=== PATIENT | male | born 1970 | race Caucasian/White ===

== ENCOUNTER 2020-04-17 08:03 | Emergency (ER) | payer OTHER, SELFPAY ==
--- NOTE | ~2020-04-17 | XR_ITS ---
EXAMINATION: XR_[id number]_CR DATE: 04/17/2020 09:13 INDICATION: Neck pain radiating to the right shoulder. TECHNIQUE: 3 views of cervical spine were obtained. COMPARISON: None. FINDINGS: Bone alignment is normal. Vertebral body heights are normal. There is mildly decreased disc height at C5-C6. The facet joints are unremarkable. No central canal stenosis or prevertebral soft t issue swelling. IMPRESSION: 1. Mild cervical spondylosis. Reviewed, dictated and finalized at location A. IN ARCHITECT
--- NOTE | ~2020-04-17 | XR_ITS ---
EXAMINATION: XR shoulder RT min 2V DATE: 04/17/2020 09:14 INDICATION: Right shoulder pain. TECHNIQUE: 4 views of right shoulder were obtained. COMPARISON: None. FINDINGS: Bone alignment is normal. No fracture. Joint spaces are well maintained. IMPRESSION: 1. Normal right shoulder. Reviewed, dictated and finalized at location A. PLOYMENT INSURANCE DIRECTOR IMPRESSION: 1. Normal right shoulder.
[2020-04-17 08:10] VITALS: BP 129/71; PULSE 81; RESP 20; TEMP 36.6; O2SAT 97
--- NOTE | 2020-04-17 09:24 | ED.UPPEXIN ---
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 There is no recent injury, no falls and no traumatic event to neck or shoulder. Has reduced range of motion secondary to pain. Patient has no fever chills no nausea vomiting no headache no blurry vision no neurological deficits. Patient has been taking [id number] ibuprofen with mild relief. MD complaint: injury to: right Onset (ago): day(s) Other injuries: none Handedness: right Place: work Severity: moderate Severity scale (1-10): 8 Context: other ( No recent injury) Related Data Allergies Allergy/AdvReac Type Severity Reaction Status Date / Time No Known Allergies Allergy Verified 04/17/20 08:45 Review of Systems Review of Systems: All systems reviewed & are unremarkable except as noted in HPI and below [facility] Past Medical History Medical History Chronic shoulder pain Exam Const: General: cooperative, healthy appearing, comfortable, no acute distress and well developed HENMT: Head: normal to inspection General nose exam: Normal external nose present Eyes: General: appearance normal, both eyes and all related structures Chest: Chest palpation & inspection: normal inspection of the chest and normal palpation of entire chest wall Resp: Effort & Inspection: normal respiratory effort and able to speak in complete sentences GI: Inspection: normal to inspection Percussion: Yes normal to percussion Skin: General skin exam: normal color and no rashes or lesions noted Neuro: General: oriented to person, oriented to place, oriented to time, patient oriented x3 and gait normal Sensory Exam: Upper extremity sensory exam abnormal ( decreased range of motion right shoulder with active and passive ROM) Psych: Appearance: grossly normal Course Course Emergency Course: reassessment patient after receiving IM Toradol pain has improved and x-rays performed reviewed with patient. Advised patient to follow-up with his primary care physician for further evaluation. Critical Care Time Critical Care Time Critical Care Time: No Discharge Plan Discharge Clinical Impression: Chronic shoulder pain Qualifiers: Laterality: right Qualified Code(s): M25.511 - Pain in right shoulder Patient Disposition: Home, Self-Care Condition: Stable Instructions: Antibiotic Form Additional Instructions: Follow-up with primary care physician as soon as possible for further evaluation and treatment. Take medicine as prescribed. Prescriptions: New tramadol [Ultram] 50 mg tablet 50 mg PO Q6H PRN (Reason: pain) Qty: 30 RF: 0 Follow-up/Referrals: UNKNOWN,DOCTOR [Primary Care Provider] - Time of Disposition: 09:50
[2020-04-17] MEDS: KETOROLAC (*BKC) 60 MG/2 ML VIAL IM (09:40)
[2020-04-17 10:02] VITALS: BP 128/71; PULSE 80; RESP 20; TEMP 36.9; O2SAT 98
== END 2020-04-17 10:10 | disposition home or self-care (01) ==
PROVIDERS: Emergency Provider Emergency Medicine
DX: M25.511 Pain in right shoulder (principal)
CPT/HCPCS: 72040; 73030; 96372; 99283; J1885

== ENCOUNTER 2020-04-21 08:15 | Outpatient (CLI) | payer OTHER, SELFPAY ==
[2020-04-21 08:32] LABS: Hematocrit 41.4 % (40.0-54.0); Hemoglobin 13.8 g/dL (14.0-18.0); Mean Corpuscular HGB Conc 33.3 g/dL (32.0-36.0); Mean Corpuscular Hemoglobin 31.5 pg (27.0-31.0); Mean Corpuscular Volume 94.5 fL (78.0-102.0); Platelet Count Result 228 K/mm3 (150-420); Red Blood Count 4.38 M/mm3 (4.70-6.10); Red Cell Distribution Width 12.1 % (11.6-14.4); White Blood Count 5.1 K/mm3 (4.8-10.8)
[2020-04-21 09:16] LABS: Alanine Aminotransferase 114 U/L (16-63); Albumin Level 3.9 g/dL (3.4-5.0); Alkaline Phosphatase 77 U/L (46-116); Anion Gap 8 mmol/L (8-16); Aspartate Amino Transferase 89 U/L (15-37); Bilirubin,Total 0.4 mg/dL (0.00-1.00); Blood Urea Nitrogen 13 mg/dL (7-18); Calcium 8.7 mg/dL (8.5-10.1); Carbon Dioxide 27 mmol/L (21-32); Chloride 106 mmol/L (98-108); Cholesterol 179 mg/dL (0-200); Estimated Glomerular Filt Rate > 60; Glucose 83 mg/dL (70-99); HDL Direct 52 mg/dL (40-60); LDL Cholesterol Calculated 112 mg/dL (<130); Osmolality Calculated 291 mOsm/kg (285-295); Potassium 4.9 mmol/L (3.5-5.1); Sodium 141 mmol/L (136-145); Total Protein 6.5 g/dL (6.4-8.2); Triglycerides 76 mg/dL (0-150)
[2020-04-25 03:10] LABS: Hepatitis C Additional Testing Has been added; Hepatitis C Virus Antibody Reactive (Nonreactive)
== END 2020-04-21 08:16 | disposition home or self-care (01) ==
LOC: CHSLAB 08:18
PROVIDERS: PCP Family Medicine; Visit Provider Family Medicine
DX: B19.20 Unspecified viral hepatitis C without hepatic coma (principal)
CPT/HCPCS: 36415; 80053; 80061; 85027

== ENCOUNTER 2020-04-30 08:42 | Outpatient (RCR) | payer OTHER, SELFPAY ==
--- NOTE | 2020-04-30 10:02 | PTOPEVAL ---
Thank you for referring Lavon Kuhn to [facility].? The patient is scheduled to be seen for therapy? __3__x/week for __12 visits. Please review, sign, date and return this plan of care HIEN. I agree with and certify that the following plan of care is medically necessary. Referring Physician Date Admitting Provider: Attending Provider: Joao Boggs DO Referring Provider: *PT Outpatient Evaluation Start: 04/30/20 09:12 Freq: Status: Active Protocol: Document 04/30/20 09:12 MANDIE (Rec: 04/30/20 10:02 MANDIE [id number]) Therapy Assessment Status Assessment Status Assessment Status Evaluation Outpatient Past Medical History Respiratory History Hx Chronic Obstructive Pulmonary Disease Yes (COPD) Gastrointestinal History Hx Appendectomy Yes Evaluation Information Problem Diagnosis right shoulder pain Onset 04/21/20 Subjective Information Pt. reports year of on/off Query Text:As Reported By Patient/ right shoulder pain. He Family states that it has recently increased in pain. He states that he has had past MRI which revealed some tears. He describes pain in the right shoulder and can radiate down into the elbow and hand. 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 He states that he does wake about every hour due to pain. He states that he cannot lay on his right side. He states that his goal is to reduce his shoulder pain. 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
--- NOTE | 2020-06-05 09:14 | PTOPEVAL ---
Thank you for referring Lavon Kuhn to [facility].? The patient is scheduled to be seen for therapy? __2__x/week for 4 visits. Please review, sign, date and return this plan of care HIEN. I agree with and certify that the following plan of care is medically necessary. Referring Physician Date Admitting Provider: Attending Provider: Joao Boggs DO Referring Provider: *PT Outpatient Evaluation Start: 04/30/20 09:12 Freq: Status: Active Protocol: Document 06/05/20 08:40 MANDIE (Rec: 06/05/20 09:13 MANDIE [email or web address]) Therapy Assessment Status Assessment Status Assessment Status Progress Outpatient Past Medical History Respiratory History Hx Chronic Obstructive Pulmonary Disease Yes (COPD) Gastrointestinal History Hx Appendectomy Yes Evaluation Information Problem Diagnosis right shoulder pain Onset 04/21/20 Subjective Information Pt. reports that he is better Query Text:As Reported By Patient/ overall. He states that the Family pain in his neck is gone. He reports most pain in the right shoulder and into the right brachial and forearm region. He states that pain is less intense than initially. 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 He states that he would like to continue with treatment based upon his progress thus far. Pain Assessment Pain Scale Pain Scale Used Numeric (1 - 10) Self Report Pain Assessment Right Shoulder(s) Reported Pain Level 3 Lowest Pain Intensity 1 Greatest Pain Intensity 5 Pain Score Pain Score 3: Self Report Interventions Used Interventions Used By Clinicians Electrical Stimulation, Exercise,Heat Upper Extremity Range of Motion General Upper Extremity Range of Motion Gross Upper Extremity Range of Motion -right shoulder flexion AROM Comments 149 degrees -left shoulder flexion 166 degrees Pt. demonstrates ability to reach the mid thoracic region with the right and left u.e. with combined IR and extension of the shoulder joint. Upper Extremity Muscle Strength Testing General Upper Extremity Strength Gross Upper Extremity Strength Comments right shoulder flexion 4/5
== END 2020-06-12 17:33 | disposition home or self-care (01) ==
LOC: CHSPT 08:42
PROVIDERS: PCP Family Medicine; Visit Provider Family Medicine
DX: M25.511 Pain in right shoulder (principal)
CPT/HCPCS: 97014; 97110; 97140; 97161; G0283

== ENCOUNTER 2020-10-15 12:35 | Outpatient (CLI) | payer OTHER, SELFPAY ==
--- NOTE | 2020-10-15 14:00 | NEURO_ITS ---
Impression: # Complains of right upper extremity pain. # No Carpal Tunnel Syndrome or ulnar neuropathy. # Normal needle/EMG exam with no neurogenic changes noted. # Clinical correlation recommended; right median f-wave latency prolonged. Nerve Conduction Studies Anti Sensory Summary Table Stim Site NR Peak (ms) P-T Amp (?V) Site1 Site2 Delta-P (ms) Dist (cm) Arcadio (m/s) Right Median Anti Sensory (2-3nd Digit) Wrist 2.7 48.1 Wrist 2-3nd Digit 2.7 14.0 52 Wrist 2.8 27.0 Wrist 2-3nd Digit 2.7 14.0 52 Right Radial Anti Sensory (Base 1st Digit) Wrist 2.6 15.1 Wrist Base 1st Digit 2.6 0.0 Right Ulnar Anti Sensory (5th Digit) Wrist 2.6 51.2 Wrist 5th Digit 2.6 14.0 54 Motor Summary Table Stim Site NR Onset (ms) O-P Amp (mV) Site1 Site2 Delta-0 (ms) Dist (cm) Arcadio (m/s) Right Median Motor (Abd Poll Brev) Wrist 2.7 5.1 Elbow Wrist 5.1 30.0 59 Elbow 7.8 3.0 Right Ulnar Motor (Abd Dig Minimi) Wrist 2.8 5.0 A Elbow Wrist 4.8 29.0 60 A Elbow 7.6 4.4 F Wave Studies NR F-Lat (ms) L-R F-Lat (ms) Right Median (Mrkrs) (Abd Poll Brev) 35.18 Right Ulnar (Mrkrs) (Abd Dig Min) 30.41 EMG Side Muscle Nerve Root Ins Act Fibs Amp Dur Recrt Comment Right 1stDorInt Ulnar C8-T1 Nml Nml Nml Nml Nml Right Ext Indicis Radial (Post Int) C7-8 Nml Nml Nml Nml Nml Right Ext Digitorum Radial (Post Int) C7-8 Nml Nml Nml Nml Nml Right BrachioRad Radial C5-6 Nml Nml Nml Nml Nml Right PronatorTeres Median C6-7 Nml Nml Nml Nml Nml Right Abd Poll Brev Median C8-T1 Nml Nml Nml Nml Nml Right ABD Dig Min Ulnar C8-T1 Nml Nml Nml Nml Nml Right Biceps Musculocut C5-6 Nml Nml Nml Nml Nml Right Brachialis Musculocut C5-6 Nml Nml Nml Nml Nml Right Triceps Radial C6-7-8 Nml Nml Nml Nml Nml Right Deltoid Axillary C5-6 Nml Nml Nml Nml Nml MTDD
== END 2020-10-15 12:36 | disposition home or self-care (01) ==
PROVIDERS: PCP Family Medicine; Visit Provider Orthopaedic Surgery
DX: G56.01 Carpal tunnel syndrome, right upper limb (principal)
CPT/HCPCS: 95886; 95909

== ENCOUNTER 2021-03-31 07:54 | Outpatient (RCR) | payer OTHER, SELFPAY ==
--- NOTE | 2021-03-31 09:09 | PTOPEVAL ---
Thank you for referring Lavon Kuhn to [facility].? The patient is scheduled to be seen for therapy? ____x/week for ___ weeks. Please review, sign, date and return this plan of care HIEN. I agree with and certify that the following plan of care is medically necessary. Referring Physician Date Admitting Provider: Attending Provider: Joao Boggs DO Referring Provider: *PT Outpatient Evaluation Start: 03/31/21 08:00 Freq: Status: Active Protocol: Document 03/31/21 08:02 [facility] (Rec: 03/31/21 09:08 [facility] [id number]) Therapy Assessment Status Assessment Status Assessment Status Evaluation Outpatient Past Medical History Respiratory History Hx Chronic Obstructive Pulmonary Disease Yes (COPD) Gastrointestinal History Hx Appendectomy Yes Evaluation Information Problem Diagnosis lumbar radiculopathy, cervical radiculopathy Onset 03/17/21 Additional Evaluation Detail oswestry = 74% functionally declined ndi = 68% functionally declined Subjective Information patient reports he has been Query Text:As Reported By Patient/ having more frequent and Family increased pain in the R side ( neck, shoulder, elbow, wrist, back, R leg, and into the R foot). he reports he has had an xray in the past. he reports he is having and MRI of the neck/shoulder this coming tuesday. he reports he has pain all the time now, but reports his pain is increased with sitting (more than 15 minutes). he reports he has pain in the R buttock with sitting. 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 he reports he has increased pain in the posterior shoulder/arm with lifting. he reports he has swelling in the upper posterior shoulder that will increase pain. he reports barely touching his elbow with feel like someone hit it with a hammer. Pain Assessment Timing of Pain Assessment Timing of Pain Assessment Assessment Pain Scale Pain S
--- NOTE | 2021-07-09 08:48 | PCPTNOTE ---
mr. stern has not been to skilled PT in over 3 months. as of this date, he will be dc'd from skilled PT services and all progress towards goals will be taken from his most recent evaluation/note.
== END 2021-04-06 23:59 | disposition home or self-care (01) ==
LOC: CHSPT 07:54
PROVIDERS: PCP Family Medicine; Visit Provider Family Medicine
DX: M54.16 Radiculopathy, lumbar region (principal); G95.9 Disease of spinal cord, unspecified; M54.12 Radiculopathy, cervical region
CPT/HCPCS: 97014; 97110; 97140; 97162; G0283

== ENCOUNTER 2021-04-04 09:25 | Outpatient (CLI) | payer OTHER, SELFPAY ==
--- NOTE | ~2021-04-04 | MR_ITS ---
EXAMINATION: MR cervical spine wo con DATE: 04/04/2021 11:16 INDICATION: Disease of spinal cord, unspecified. TECHNIQUE: Magnetic resonance imaging (MRI) of the cervical spine was performed without intravenous c ontrast. Sequences included sagittal T2-weighted FSE, sagittal T2-weighted FS FSE, sagittal T1-weight ed FSE, axial MERGE, and axial T2-weighted FSE. COMPARISON: Cervical spine radiographs 04/17/2020 FINDINGS: There is 2 mm anterolisthesis of C5 on C6. Vertebral body heights are normal. There is mode rately decreased disc height at C5-C6. The spinal cord signal intensity is normal. The following disc levels are specifically discussed: C2-C3: The disc does not extend beyond the endplate margin. There is severe left uncovertebral joint osteoarthritis. There is mild right and moderate left facet joint osteoarthritis. There is mild left neural foraminal stenosis. There is no central canal stenosis. C3-C4: The disc does not extend beyond the endplate margin. There is mild bilateral uncovertebral kirill nt osteoarthritis. There is severe right and moderate left facet joint osteoarthritis. There is mild bilateral neural foraminal stenosis. There is no central canal stenosis. C4-C5: The disc does not extend beyond the endplate margin. There is moderate right and mild left unc overtebral joint osteoarthritis. There is severe right and moderate left facet joint osteoarthritis. There is moderate right and mild left neural foraminal stenosis. There is no central canal stenosis. C5-C6: There is a central protrusion. There is severe bilateral uncovertebral joint osteoarthritis. T here is severe bilateral facet joint osteoarthritis. There is moderate bilateral neural foraminal leonardo nosis. There is mild central canal stenosis. C6-C7: The disc does not extend beyond the endplate margin. There is mild right and moderate left unc overtebral joint osteoarthritis. There is moderate bilateral facet joint osteoarthritis. There is mil d bilateral neural foraminal stenosis. There is no central canal stenosis. C7-T1: The disc does not extend beyond the endplate margin. There is no uncovertebral joint osteoarth ritis. There is mild bilateral facet joint osteoarthritis. There is no neural foraminal stenosis. The re is no central canal stenosis. IMPRESSION: 1. Moderate cervical spondylosis. Reviewed, dictated and finalized at location A. ICIAN OFFICE SPECIALIST
== END 2021-04-04 09:26 | disposition home or self-care (01) ==
LOC: CHSIMG 09:25
PROVIDERS: PCP Family Medicine; Visit Provider Family Medicine
DX: M54.2 Cervicalgia (principal)
CPT/HCPCS: 72141

== ENCOUNTER 2021-06-04 12:46 | Outpatient (CLI) | payer OTHER, SELFPAY ==
--- NOTE | ~2021-06-04 | US_ITS ---
EXAMINATION: US joint non vasc comp RT DATE: 06/04/2021 13:21 INDICATION: Right upper arm pain. TECHNIQUE: Multiple grayscale and Doppler ultrasound images of the right shoulder were obtained. COMPARISON: None FINDINGS: Small amount of fluid overlying the posterior superior aspect of the right humeral head. No other abn ormal masses or fluid collections identified. No pathologically enlarged left axillary lymphadenopath y. IMPRESSION: 1. Small fluid collection overlying the posterior superior aspect of the right humeral head which cou ld represent a small joint effusion, a rotator cuff tear defect or small amount of fluid in the subac romial/subdeltoid bursa in the setting of bursitis. Consider MRI for further evaluation. Reviewed, dictated and finalized at location B. ISHINGS CONSERVATOR IMPRESSION: 1. Small fluid collection overlying the posterior superior aspect of the right humeral head which could represent a small joint effusion, a rotator cuff tear defect or small amount of fluid in the subacromial/subdeltoid bursa in the sett ing of bursitis. Consider MRI for further evaluation.
== END 2021-06-04 12:47 | disposition home or self-care (01) ==
LOC: CHSIMG 12:48
PROVIDERS: PCP Family Medicine; Visit Provider Nurse Practitioner Family
DX: M25.411 Effusion, right shoulder (principal)
CPT/HCPCS: 76881